=== PATIENT | female | born 1990 | race Caucasian/White ===

== ENCOUNTER 2024-03-03 05:54 | Inpatient (IN) ==
[~2024-03-03 05:54] MED LIST: Naloxone 0.4 mg VIAL 0.4 mg/ml 1 ml VIAL IV PRN
[2024-03-03] MEDS ORDERED: Ondansetron 4 mg VIAL 2 MG/ML 2 ml VIAL ONE ×2 (06:21→11:27)
[2024-03-03] MEDS ORDERED: Dexamethasone IV 4 MG/ML VIAL 1 ml VIAL ONE ×2 (06:21→07:56)
[2024-03-03] MEDS ORDERED: Midazolam 2 mg/2 ml VIAL 1 mg/ml 2 ml VIAL (2 mg) ONE (06:21)
[2024-03-03] MEDS ORDERED: Sterile Water for Inj 10 ML ONE (06:21)
[2024-03-03] MEDS ORDERED: Propofol 10 MG/ML 20 ML BTL ONE (06:21)
[2024-03-03] MEDS ORDERED: Lidocaine 2% PF 5 ML VIAL ONE (06:21)
[2024-03-03] MEDS ORDERED: Rocuronium 50 mg VIAL 10 mg/ml 5 ml VIAL (50 mg) ONE ×2 (06:21→07:59)
[2024-03-03] MEDS ORDERED: fentaNYL 100 mcg/2 ml 50 MCG/ML VIAL ONE ×2 (06:21→11:05)
[2024-03-03] MEDS ORDERED: Sevoflurane BOTTLE ONE (06:22)
[2024-03-03] MEDS ORDERED: Scopolamine 1 mg/72hr PATCH ONE (06:23)
[2024-03-03] MEDS ORDERED: Heparin 5000 UNITS/ML 1 mL VIAL ONE (06:23)
[2024-03-03] MEDS ORDERED: ceFAZolin *3* GM in NS PREMIX 3 GM/100 ML BAG IV ONE (06:23)
[2024-03-03 06:36] LABS: Rapid COVID-19 Molecular Undetected (Undetected)
[2024-03-03] MEDS: Scopolamine 1 mg/72hr PATCH TRANSDERM ONE (06:43)
[2024-03-03] MEDS: Lactated Ringers 1000 ml BAG 1,000 ML IV SCH ×2 (06:43→14:04)
[2024-03-03] MEDS ORDERED: Acetaminophen IV 1 GM/100ML 1,000 MG/100 ML BAG IV ONE (06:44)
[2024-03-03] MEDS: Acetaminophen IV 1 GM/100ML 1,000 MG/100 ML BAG IV ONE (06:44)
[2024-03-03] MEDS ORDERED: Dexmedetomidine 200 mcg/2 ml 2 ml VIAL (200 mcg) ONE (06:45)
[2024-03-03] MEDS ORDERED: Bupivacaine 0.25% EPI 200,000 30 ML SDV ONE (07:04)
[2024-03-03] MEDS ORDERED: Methylene Blue 1% (ANTIDOTE) 10 MG/ML 10 ML SDV VIAL IVPB ONE (07:06)
[2024-03-03] MEDS ORDERED: HYDROmorphone 0.5 MG/0.5 ML SYRINGE ONE (08:29)
[2024-03-03] MEDS ORDERED: HYDROcodone/ACET. 7.5/325 LIQ 15 ML UDC PO PRN (10:27)
[2024-03-03] MEDS: fentaNYL 100 mcg/2 ml 50 MCG/ML VIAL IV PRN (11:08)
[2024-03-03] MEDS: Ondansetron 4 mg VIAL 2 MG/ML 2 ml VIAL IV PRN ×2 (11:28→13:52)
[2024-03-03] MEDS ORDERED: HYDROmorphone 1 MG/1 ML SYRINGE ONE (12:08)
[2024-03-03] MEDS: HYDROmorphone 1 MG/1 ML SYRINGE IV PRN (12:11)
[2024-03-03] MEDS: Buffered Lidocaine 1% SYRIN 1 ml INTRADERM ONE (13:40)
[2024-03-03] MEDS: Metoclopramide 5 MG/ML VIAL (10 mg) IV SLOW PU ONE (13:40)
[2024-03-03] MEDS: Heparin 5000 UNITS/ML 1 mL VIAL SUBCUT SCH (13:56)
[2024-03-03] MEDS: HYDROmorphone 0.5 MG/0.5 ML SYRINGE IV SLOW PU PRN (15:05)
[2024-03-04] MEDS: Acetaminophen IV 1 GM/100ML 1,000 MG/100 ML BAG IV PRN (10:05)
[2024-03-04] MEDS: D5W 1/2 NS KCl 20 meq 1000 ml 1,000 ML IV SCH (10:05)
[2024-03-04 13:54] VITALS: BP 107/78
== END 2024-03-04 16:30 | disposition home or self-care (01) | DRG 403 ==
LOC: AA 05:54 → SSU 10:28
PROVIDERS: ADMIT Surgery; ATTEND Surgery

== ENCOUNTER 2024-04-16 12:06 | Inpatient (IN) ==
[2024-04-16 13:37] LABS: Urine Appearance Clear; Urine Bilirubin 1+ (Negative); Urine Blood Negative (Negative); Urine Color Yellow; Urine Glucose Negative (Negative); Urine Ketones 4+ (Negative); Urine Nitrite Negative (Negative); Urine Protein 1+ (>=30 mg/dL) (Negative); Urine Specific Gravity 1.036 (1.002-1.030); Urine Urobilinogen 2+ (Negative)
[2024-04-16 13:55] LABS: Urine Bacteria Absent /HPF (Absent); Urine Red Blood Cell 1+(3-5/hpf) /HPF (0-Trace); Urine Squamous Epithelial Cell Present /HPF (Absent); Urine White Blood Cell Trace(0-5/hpf) /HPF (0-Trace)
[2024-04-16 15:55] LABS: ABS Lymphocytes 1.2 10^3/uL (1.0-4.8); ABS Monocytes 0.2 10^3/uL (0.0-0.9); ABS Neutrophils 1.9 10^3/uL (1.5-7.6); Eosinophil % 0.8 %; Hematocrit 32.8 % (35-45); Hemoglobin 11.1 g/dL (11.5-14.3); Lymphocyte % 35.2 %; Mean Corpuscular Hemoglobin 31.5 pg (27-33); Mean Corpuscular Hgb Conc 33.9 g/dL (31-36); Mean Corpuscular Volume 92.7 fL (80-97); Mean Platelet Volume 8.1 fL (7.5-11.2); Nucleated Red Blood Cells % 0.1 %/100WBC (0.0-0.8); Platelet Count 205 10^3/uL (150-450); Red Blood Count 3.54 10^6/uL (3.63-4.92); Red Cell Distribution Width 14.8 % (12-17); White Blood Count 3.4 10^3/uL (3.8-11.8)
[2024-04-16] MEDS: Lactated Ringers 1000 ml BAG 1,000 ML IV ONE (15:57)
[2024-04-16] MEDS: Morphine 4 MG/ML VIAL (1 ml) IV ONE (16:19)
[2024-04-16] MEDS: Ondansetron 4 mg VIAL 2 MG/ML 2 ml VIAL IV ONE (16:19)
[2024-04-16 16:27] LABS: ALT 15 U/L (7-52); AST 15 U/L (13-39); Albumin 4.7 g/dL (3.2-5.2); Albumin/Globulin Ratio 2.6 (1-3); Alkaline Phosphatase 47 U/L (35-149); Anion Gap 10 mmol/L (2-16); Blood Urea Nitrogen 13 mg/dL (6-24); C Reactive Protein 1.68 mg/L (<8.01); CO2 Carbon Dioxide 26 mmol/L (22-32); Calcium 9.3 mg/dL (8.6-10.3); Chloride 104 mmol/L (101-111); Globulin 1.8 g/dL (2-4); Glucose 67 mg/dL (70-100); Lipase < 10 U/L (11.0-82.0); Magnesium 2.3 mg/dL (1.9-2.7); Potassium 3.5 mmol/L (3.5-5.0); Sodium 140 mmol/L (135-145); Total Bilirubin 0.8 mg/dL (0.2-1.0); Total Protein 6.5 g/dL (6.4-8.9); eGFR CKD-EPI 126.1 (>60)
[2024-04-16] MEDS: Iohexol 350 (CONTRAST) 500 ML MDV IV ONE (17:38)
[2024-04-16] MEDS: Dextrose 50% Syringe 50 ml 25 GM/50 ML SYRINGE IV PUSH ONE (17:56)
[2024-04-16] MEDS: Thiamine 100 MG/ML 2 ml VIAL 100 MG, Folic Acid IV 1 MG, Multiple Vitamin IV ADULT 10 M... IV ONE (18:10)
[2024-04-16] MEDS: Pantoprazole VIAL 40 MG VIAL IV ONE (18:35)
[2024-04-16] MEDS: Ondansetron 4 mg VIAL 2 MG/ML 2 ml VIAL IV PRN (19:07)
[2024-04-16] MEDS: D5LR 1000 ml BAG 1,000 ML IV SCH (21:10)
[2024-04-16] MEDS: Acetaminophen IV 1 GM/100ML 1,000 MG/100 ML BAG IV PRN (23:00)
[2024-04-17] MEDS: HYDROmorphone 1 MG/1 ML SYRINGE IV PRN (03:55)
[2024-04-17] MEDS: Pantoprazole VIAL 40 MG VIAL IV SCH (09:11)
[2024-04-17] MEDS ORDERED: Calcium Carb (TUMS) 500 mg CHEW TAB PO PRN (20:01)
[2024-04-17] MEDS: Morphine 2 MG/ML SYRINGE IV PRN (20:42)
[2024-04-18] MEDS: HYDROcodone/ACETAMIN 5/325 mg TAB PO PRN (04:48)
[2024-04-18 06:35] LABS: Hematocrit 30.1 % (35-45); Hemoglobin 10.3 g/dL (11.5-14.3); Mean Corpuscular Hemoglobin 31.9 pg (27-33); Mean Corpuscular Volume 93.8 fL (80-97); Mean Platelet Volume 8.5 fL (7.5-11.2); Platelet Count 190 10^3/uL (150-450); Red Blood Count 3.21 10^6/uL (3.63-4.92); Red Cell Distribution Width 15.3 % (12-17); White Blood Count 2.8 10^3/uL (3.8-11.8)
[2024-04-18 06:56] LABS: ABS Eosinophils 0.1 10^3/uL (0.0-0.5); ABS Lymphocytes 1.6 10^3/uL (1.0-4.8); ABS Monocytes 0.2 10^3/uL (0.0-0.9); ABS Neutrophils 0.9 10^3/uL (1.5-7.6); Eosinophil % 1.9 %; Lymphocyte % 58.4 %; Nucleated Red Blood Cells % 0.1 %/100WBC (0.0-0.8)
[2024-04-18 06:58] LABS: Albumin 3.6 g/dL (3.2-5.2); Albumin/Globulin Ratio 2.4 (1-3); Calcium 8.5 mg/dL (8.6-10.3); Creatinine, Serum 0.51 mg/dL (0.51-0.95); Globulin 1.5 g/dL (2-4); Potassium 3.3 mmol/L (3.5-5.0); Total Bilirubin 0.4 mg/dL (0.2-1.0); Total Protein 5.1 g/dL (6.4-8.9); eGFR CKD-EPI 125.5 (>60)
[2024-04-18] MEDS: Sucralfate 1 gm SUSP 1 GM/10 ML UDC PO SCH (11:38)
[2024-04-18] MEDS: Enoxaparin 40 MG/0.4 ML SYR SUBCUT SCH (11:43)
[2024-04-19] MEDS: D5W 1/2 NS KCl 20 meq 1000 ml 1,000 ML IV SCH (09:40)
[2024-04-19] MEDS ORDERED: Midazolam 10 mg/10 ml VIAL 1 mg/ml 10 ml VIAL (10 mg) ONE (15:17)
[2024-04-19] MEDS ORDERED: fentaNYL 100 mcg/2 ml 50 MCG/ML VIAL ONE (15:17)
[2024-04-20 06:41] LABS: Hematocrit 31.4 % (35-45); Hemoglobin 10.6 g/dL (11.5-14.3); Mean Corpuscular Hemoglobin 31.4 pg (27-33); Mean Corpuscular Hgb Conc 33.6 g/dL (31-36); Mean Corpuscular Volume 93.5 fL (80-97); Mean Platelet Volume 8.3 fL (7.5-11.2); Platelet Count 185 10^3/uL (150-450); Red Blood Count 3.36 10^6/uL (3.63-4.92); Red Cell Distribution Width 14.9 % (12-17); White Blood Count 2.9 10^3/uL (3.8-11.8)
[2024-04-20 09:27] LABS: Calcium 8.4 mg/dL (8.6-10.3); Creatinine, Serum 0.59 mg/dL (0.51-0.95); Potassium 3.3 mmol/L (3.5-5.0); eGFR CKD-EPI 121.2 (>60)
[2024-04-20] MEDS: Potassium Chlor 20 meq TAB.ER PO ONE (10:52)
[2024-04-20] MEDS: HYDROcodone/ACET. 7.5/325 LIQ 15 ML UDC PO PRN (15:15)
[2024-04-21 05:30] LABS: Hematocrit 33.2 % (35-45); Hemoglobin 11.4 g/dL (11.5-14.3); Mean Corpuscular Hgb Conc 34.4 g/dL (31-36); Mean Corpuscular Volume 93.1 fL (80-97); Platelet Count 195 10^3/uL (150-450); Red Blood Count 3.57 10^6/uL (3.63-4.92); Red Cell Distribution Width 15.3 % (12-17); White Blood Count 3.1 10^3/uL (3.8-11.8)
[2024-04-21 05:54] LABS: ABS Eosinophils 0.1 10^3/uL (0.0-0.5); ABS Lymphocytes 1.7 10^3/uL (1.0-4.8); ABS Monocytes 0.3 10^3/uL (0.0-0.9); Lymphocyte % 54.5 %; Nucleated Red Blood Cells % 0.1 %/100WBC (0.0-0.8)
[2024-04-21 05:57] LABS: ALT 10 U/L (7-52); AST 12 U/L (13-39); Albumin 3.5 g/dL (3.2-5.2); Albumin/Globulin Ratio 2.2 (1-3); Alkaline Phosphatase 45 U/L (35-149); Anion Gap 3 mmol/L (2-16); Blood Urea Nitrogen 2 mg/dL (6-24); CO2 Carbon Dioxide 33 mmol/L (22-32); Calcium 8.8 mg/dL (8.6-10.3); Chloride 106 mmol/L (101-111); Creatinine, Serum 0.55 mg/dL (0.51-0.95); Globulin 1.6 g/dL (2-4); Glucose 85 mg/dL (70-100); Sodium 142 mmol/L (135-145); Total Bilirubin 0.4 mg/dL (0.2-1.0); Total Protein 5.1 g/dL (6.4-8.9); eGFR CKD-EPI 123.3 (>60)
[2024-04-21] MEDS ORDERED: Naloxone 0.4 mg VIAL 0.4 mg/ml 1 ml VIAL IV PRN (09:33)
[2024-04-21 09:45] LABS: HCG Pregnancy < 0.60 mIU/mL
[2024-04-21] MEDS: Lactated Ringers 1000 ml BAG 1,000 ML IV SCH (09:55)
[2024-04-21] MEDS ORDERED: Bupivacaine 0.25% EPI 200,000 30 ML SDV ONE (11:36)
[2024-04-21] MEDS ORDERED: Midazolam 2 mg/2 ml VIAL 1 mg/ml 2 ml VIAL (2 mg) ONE (11:55)
[2024-04-21] MEDS ORDERED: Lidocaine 2% PF 5 ML VIAL ONE (11:55)
[2024-04-21] MEDS ORDERED: fentaNYL 100 mcg/2 ml 50 MCG/ML VIAL ONE ×2 (11:55→14:31)
[2024-04-21] MEDS ORDERED: Rocuronium 50 mg VIAL 10 mg/ml 5 ml VIAL (50 mg) ONE ×2 (11:55→13:32)
[2024-04-21] MEDS: Buffered Lidocaine 1% SYRIN 1 ml INTRADERM ONE (11:55)
[2024-04-21] MEDS ORDERED: Propofol 10 MG/ML 20 ML BTL ONE (11:55)
[2024-04-21] MEDS: Lactated Ringers 1000 ml BAG 1,000 ML IV ONE (11:57)
[2024-04-21] MEDS ORDERED: ceFAZolin 2 GM PREMIX 2 GM/50 ML BAG ONE (12:21)
[2024-04-21] MEDS ORDERED: Ondansetron 4 mg VIAL 2 MG/ML 2 ml VIAL ONE (13:15)
[2024-04-21] MEDS ORDERED: Dexamethasone IV 4 MG/ML VIAL 1 ml VIAL ONE ×2 (13:15→13:16)
[2024-04-21] MEDS ORDERED: Glycopyrrolate IV 0.2 MG/ML 1 ML VIAL ONE (13:29)
[2024-04-21] MEDS: fentaNYL 100 mcg/2 ml 50 MCG/ML VIAL IV PRN (14:35)
[2024-04-22 06:26] LABS: Albumin 3.9 g/dL (3.2-5.2); Albumin/Globulin Ratio 2.1 (1-3); Direct Bilirubin 0.1 mg/dL (0.03-0.18); Globulin 1.9 g/dL (2-4); Indirect Bilirubin 0.3 mg/dL (0.3-1.0); Total Bilirubin 0.4 mg/dL (0.2-1.0); Total Protein 5.8 g/dL (6.4-8.9)
[2024-04-22] MEDS: HYDROcodone/ACET. 7.5/325 LIQ 15 ML UDC PO PRN (09:52)
[2024-04-22] MEDS: Thiamine 100 MG/ML 2 ml VIAL 100 MG, Folic Acid IV 1 MG, Multiple Vitamin IV ADULT 10 M... IV ONE (10:31)
[2024-04-23 14:36] VITALS: BP 112/75
== END 2024-04-23 14:54 | disposition home or self-care (01) | DRG 951 ==
LOC: ED 12:06 → EDHOLD 12:06 → SSU 04-17 07:39
PROVIDERS: ADMIT Surgery; ATTEND Surgery

== ENCOUNTER 2024-06-07 10:57 | Observation (INO) ==
[2024-06-07 13:33] LABS: ABS Lymphocytes 1.7 10^3/uL (1.0-4.8); ABS Monocytes 0.3 10^3/uL (0.0-0.9); ABS Neutrophils 3.1 10^3/uL (1.5-7.6); ABS Nucleated RBC 0.01 10^3/ul; Eosinophil % 0.4 %; Hematocrit 31.9 % (35-45); Lymphocyte % 32.5 %; Mean Corpuscular Hemoglobin 30.2 pg (27-33); Mean Corpuscular Hgb Conc 34.5 g/dL (31-36); Mean Corpuscular Volume 87.7 fL (80-97); Mean Platelet Volume 8.2 fL (7.5-11.2); Nucleated Red Blood Cells % 0.1 %/100WBC (0.0-0.8); Platelet Count 239 10^3/uL (150-450); Red Blood Count 3.63 10^6/uL (3.63-4.92); Red Cell Distribution Width 13.5 % (12-17); White Blood Count 5.2 10^3/uL (3.8-11.8)
[2024-06-07 13:35] LABS: Urine Appearance Turbid; Urine Bilirubin Negative (Negative); Urine Blood Negative (Negative); Urine Color Yellow; Urine Glucose Negative (Negative); Urine Ketones 4+ (Negative); Urine Nitrite Negative (Negative); Urine Protein 1+ (>=30 mg/dL) (Negative); Urine Specific Gravity 1.029 (1.002-1.030); Urine Urobilinogen 1+ (Negative)
[2024-06-07 13:45] LABS: Urine Bacteria Absent /HPF (Absent); Urine Red Blood Cell Trace(0-2/hpf) /HPF (0-Trace); Urine Squamous Epithelial Cell Present /HPF (Absent); Urine White Blood Cell Trace(0-5/hpf) /HPF (0-Trace)
[2024-06-07 14:20] LABS: ALT 10 U/L (7-52); AST 13 U/L (13-39); Albumin 4.6 g/dL (3.2-5.2); Albumin/Globulin Ratio 2.2 (1-3); Alkaline Phosphatase 56 U/L (35-149); Anion Gap 9 mmol/L (2-16); Blood Urea Nitrogen 13 mg/dL (6-24); C Reactive Protein 1.35 mg/L (<8.01); CO2 Carbon Dioxide 28 mmol/L (22-32); Chloride 102 mmol/L (101-111); Creatinine, Serum 0.47 mg/dL (0.51-0.95); Globulin 2.1 g/dL (2-4); Glucose 80 mg/dL (70-100); Lipase < 10 U/L (11.0-82.0); Magnesium 1.9 mg/dL (1.9-2.7); Potassium 3.8 mmol/L (3.5-5.0); Sodium 139 mmol/L (135-145); Total Bilirubin 0.4 mg/dL (0.2-1.0); Total Protein 6.7 g/dL (6.4-8.9)
[2024-06-07 14:22] LABS: HCG Pregnancy < 0.60 mIU/mL
[2024-06-07] MEDS: Pantoprazole VIAL 40 MG VIAL IV ONE (15:40)
[2024-06-07] MEDS: Droperidol 5 MG/2 ML 2 ML VIAL IV ONE (15:40)
[2024-06-07] MEDS: Morphine 4 MG/ML VIAL (1 ml) IV ONE (15:48)
[2024-06-07] MEDS: Lactated Ringers 1000 ml BAG 1,000 ML IV ONE (16:14)
[2024-06-07] MEDS ORDERED: Sulfur Hexaflouride MICROSPHR 25 MG VIAL IV ONE (17:28)
[2024-06-07] MEDS: Thiamine 100 MG/ML 2 ml VIAL 100 MG, Folic Acid IV 1 MG, Multiple Vitamin IV ADULT 10 M... IV ONE (17:46)
[2024-06-07] MEDS: Lactated Ringers 1000 ml BAG 1,000 ML IV SCH (20:11)
[2024-06-07] MEDS: Ondansetron 4 mg VIAL 2 MG/ML 2 ml VIAL IV PRN (20:11)
[2024-06-07] MEDS ORDERED: Pantoprazole VIAL 40 MG VIAL IV SCH (21:00)
[2024-06-08 05:27] LABS: ABS Eosinophils 0.1 10^3/uL (0.0-0.5); ABS Lymphocytes 2.1 10^3/uL (1.0-4.8); ABS Monocytes 0.3 10^3/uL (0.0-0.9); ABS Neutrophils 1.1 10^3/uL (1.5-7.6); Eosinophil % 1.5 %; Hematocrit 24.7 % (35-45); Hemoglobin 8.6 g/dL (11.5-14.3); Lymphocyte % 58.9 %; Mean Corpuscular Hemoglobin 30.4 pg (27-33); Mean Corpuscular Hgb Conc 34.8 g/dL (31-36); Mean Corpuscular Volume 87.3 fL (80-97); Mean Platelet Volume 8.1 fL (7.5-11.2); Nucleated Red Blood Cells % 0.1 %/100WBC (0.0-0.8); Platelet Count 155 10^3/uL (150-450); Red Blood Count 2.83 10^6/uL (3.63-4.92); Red Cell Distribution Width 12.9 % (12-17); White Blood Count 3.5 10^3/uL (3.8-11.8)
[2024-06-08 05:55] LABS: TSH Ultra Thyroid Stim Horm 2.27 mcIU/mL (0.34-5.60)
[2024-06-08 06:39] LABS: Erythrocyte Sed Rate 4 mm/Hr (0-19)
[2024-06-08] MEDS: Pantoprazole VIAL 40 MG VIAL IV SCH (07:46)
[2024-06-08] MEDS ORDERED: Sulfur Hexaflouride MICROSPHR 25 MG VIAL ONE (09:12)
[2024-06-08] MEDS: Acetaminophen IV 1 GM/100ML 1,000 MG/100 ML BAG IV PRN (09:27)
[2024-06-08 14:59] LABS: Hematocrit 24.4 % (35-45); Hemoglobin 8.1 g/dL (11.5-14.3)
[2024-06-08] MEDS ORDERED: fentaNYL 100 mcg/2 ml 50 MCG/ML VIAL ONE (15:27)
[2024-06-08] MEDS ORDERED: Midazolam 5 mg/5 ml VIAL 1 mg/ml 5 ml VIAL (5 mg) ONE (15:28)
[2024-06-08] MEDS: Sulfur Hexaflouride MICROSPHR 25 MG VIAL IV ONE (16:55)
[2024-06-08] MEDS: Midazolam 10 mg/10 ml VIAL 1 mg/ml 10 ml VIAL (10 mg) IV SLOW PU ONE (16:57)
[2024-06-08] MEDS: fentaNYL 100 mcg/2 ml 50 MCG/ML VIAL IV SLOW PU ONE (16:57)
[2024-06-08] MEDS: Ferric Gluconate IV 125 MG in NS 0.9% 100 ml BAG 100 ML IVPB ONE (17:14)
[2024-06-08 17:50] LABS: Ferritin 35.9 ng/mL (11-307)
[2024-06-08 18:03] VITALS: BP 106/70
== END 2024-06-08 20:22 | disposition home or self-care (01) ==
LOC: EDHOLD 10:57 → ED 10:57 → MED 20:59
PROVIDERS: ADMIT Surgery; ATTEND Surgery